=== PATIENT | female | born 1945 | race Caucasian/White ===

== ENCOUNTER → 2017-03-20 | Outpatient (CLI) | payer MEDICARE ==
[~2017-03-20] MED LIST: ASPIRIN 81MG TA81 MG PO; CALCIUM 500 + D1 TAB PO; CENTRUM SILVER1 TA1 PO; DIOVAN HCT 25 M1 TA1 PO; LUMIGAN OP; MASON NATURAL1200 MG PO; SYNTHROID0.125 MG PO
[2017-03-20 15:28] LABS: BUN 17 mg/dL (7-18)
[2017-03-20 15:33] LABS: GFR (ESTIMATED) 83 ML/MIN (59-)
== END ==
LOC: LAB 09:12
PROVIDERS: Nurse Practitioner Family
DX: I10 Essential (primary) hypertension (principal); E03.8 Other specified hypothyroidism

== ENCOUNTER → 2017-03-25 | Outpatient (CLI) | payer MEDICARE ==
--- NOTE | 2017-03-25 14:54 | RADIOLOGY REPORT PS360 ---
BONE DENSITOMETRY(HIP:LT SPINE COMPARISON: None HISTORY: Patient is postmenopausal, low calcium intake TECHNIQUE: DEXA scanning of the lumbar spine and hips FINDINGS: The areas BMD lumbar spine L1-L4 is 1.693 g/sq cm and the T score is 4.3. This value is likely skewed somewhat due to degenerative changes with disc space narrowing and sclerosis mid to lower lumbar spine. The total BMD right hip is 1.077 g/sq cm with a T score of 0.5 and the right femoral neck is 0.955 g/sq cm and the T score is -0.6 IMPRESSION: Normal values for lumbar spine and right hip though the lumbar spine value a be somewhat skewed as mentioned above, consider follow-up study in 2 years
--- NOTE | 2017-03-29 14:47 | RADIOLOGY REPORT PS360 ---
DIG MAMM-SCREEN [facility] W/CAD CAD Screening COMPARISON: Digital mammograms 10/09/2010 INDICATION: There is no personal or family history of breast cancer TECHNIQUE: Standard CC and MLO images were obtained. R2 CAD reviewed. FINDINGS: The breasts are of low density in both lungs entirely of fat with minimal scattered fibroglandular densities noted. There is no suspicious lesion and no suspicious microcalcifications. IMPRESSION: A type breast parenchyma with no suspicious lesion seen recommend yearly follow-up BI-RADS CATEGORY: 1_Negative RECOMMENDED FOLLOWUP: 12M 12 MONTH FOLLOW-UP (A letter has been sent to the patient regarding results of the study.)
== END ==
LOC: RAD 10:14
DX: Z12.31 Encounter for screening mammogram for malignant neoplasm of breast (principal); Z78.0 Asymptomatic menopausal state; Z13.820 Encounter for screening for osteoporosis
CPT/HCPCS: G0202